=== PATIENT | female | born 1960 | race Caucasian/White ===

== ENCOUNTER 2021-02-23 19:59 | Emergency (ER) | payer OTHER, SELFPAY ==
[2021-02-23] VITALS (12 sets, daily range): BP systolic 139–198; BP diastolic 75–96; PULSE 63–84; RESP 13–16; TEMP 36.6; O2SAT 95–100
--- NOTE | ~2021-02-23 | XR_ITS ---
EXAMINATION: XR chest 1V portable 02/23/2021 20:23 INDICATION: Dyspnea. Asthma. PROCEDURE: AP portable chest COMPARISON: 03/16/2016 FINDINGS: The lungs are clear. The cardiomediastinal silhouette is within normal limits. There are no pleural effusions. There is no pneumothorax suspected. There is dextroscoliosis of the thoracic spine. IMPRESSION: 1: NO ACUTE CARDIOPULMONARY DISEASE. Reviewed, dictated and finalized at location A.
--- NOTE | ~2021-02-23 | CT_ITS ---
EXAMINATION: CTA brain carotid DATE: 02/23/2021 21:24 CDT INDICATION: Right-sided headache. Blurred vision. TECHNIQUE: Computed tomographic angiography (CTA) of the head was performed without and with 100 mL O mnipaque-350 intravenous contrast. CTA of the neck was performed with intravenous contrast. The dose- length product was 1675.01 mGy-cm. Maximum intensity projection and volume rendered 3D-reconstruction s were created by the technologist on a separate workstation. Automated exposure control and iterativ e reconstruction technique were employed. COMPARISON: None. FINDINGS: HEAD CT/CTA: Normal brain parenchymal volume for age. No ventriculomegaly or midline shift. Normal gr ay-white differentiation. No acute hemorrhage, infarction, mass or mass effect. Paranasal sinuses and mastoids are pneumatized. No there is normal course and caliber of the vertebral and internal caroti d arteries. The anterior, middle and posterior cerebral arteries are symmetric without significant st enosis, occlusion or aneurysm. NECK CTA: No significant stenosis identified at the origin of the great vessels. The aortic arch is u nremarkable. There is normal contrast opacification of the common, internal and external carotid doretha rickey without significant stenosis, occlusion or ulceration. The lung apices are unremarkable. There i s scoliosis of the thoracic spine, partially visualized. Moderate cervical spondylosis. There is 0% stenosis of the proximal right internal carotid artery relative to normal distal artery l umen diameter (NASCET criteria). There is 0% stenosis of the proximal left internal carotid artery re lative to normal distal artery lumen diameter. IMPRESSION: 1. No acute intracranial abnormality. 2: No significant vascular abnormality of the arteries of the head or neck. Reviewed, dictated and finalized at location A.
--- NOTE | 2021-02-23 20:12 | ECG_ITS ---
Measurements Intervals [place] Rate: 70 P: 63 CT: 165 QRS: 57 QRSD: 93 T: 68 QT: 394 QTc: 427 Interpretive Statements SINUS RHYTHM INCOMPLETE RIGHT BUNDLE BRANCH BLOCK BASELINE ARTIFACT- I, II, AVR, AVL, V2-V3 BORDERLINE ECG Electronically Signed On 02-24-2021 7:08:47 CDT by Melchor Denis D.O.
--- NOTE | 2021-02-23 20:23 | ED.NEUROSD ---
HPI - Neuro Symptoms/Deficit General Chief Complaint: Neuro Symptoms/Deficit Stated Complaint: blurred vision, pressure, numbness to right face Time Seen by Provider: 02/23/21 20:03 Source: patient Mode of arrival: ambulatory Limitations: no limitations History of Present Illness HPI Narrative: This is a 60 year old healthy female who presents for evaluation of right eye blurred vision. She reports developed sudden onset right eye blurred vision with associated right facial pain and right side headache around 430 pm today. Afterwards she went home to sleep it off. Her pain and blurred vision have continued. She describes her pain has right facial pressure. She has not taken any medication for pain. she denies visual field defects to her eye. She reports nausea but denies vomting, fever, focal weakness, numbness or tingling. she denies history of migraine headaches or CVA. Related Data Allergies Allergy/AdvReac Type Severity Reaction Status Date / Time No Known Allergies Allergy Unverified 03/16/16 13:43 Review of Systems Review of Systems: All systems reviewed & are unremarkable except as noted in HPI and below Constitutional: Constitutional: Denies chills and Denies fever(s) Eyes: Eyes: Reports change in vision, Denies diplopia, Denies loss of vision and Denies requires corrective lenses ENT: Reports nasal congestion Cardiovascular: Cardiovascular: Denies chest pain Respiratory: Respiratory: Denies cough and Denies dyspnea Gastrointestinal: Gastrointestinal: Denies abdominal pain, Reports nausea and Denies vomiting Neurologic: Denies vertigo, Denies dizziness, Reports headache(s), Denies focal weakness and Denies numbness PMFSH Past Medical History Medical History (Updated 02/24/21 @ 08:50 by Debra Canseco MD) Patient denies medical problems Surgical History Surgical History (Updated 02/24/21 @ 08:50 by Debra Canseco MD) Hx of tonsillectomy Social History Social History (Updated 02/24/21 @ 08:50 by Debra Canseco MD) Smoking status: Never smoker Substance use: never Exam Const: General: no acute distress and alert Orientation/consciousness: patient oriented x3 HENMT: Head: normocephalic and atraumatic Ears: TM's normal bilaterally and EAC's normal Face and sinus: face symmetric and sinus tenderness maxillary (right) Mouth: Yes Normal oral and palatal mucosa present, Yes lip normal, Yes oropharynx normal and Yes moist mucous membranes Throat: posterior oropharynx normal, tonsils normal and uvula midline Eyes: Visual Beard: normal visual beard by confrontation Alignment and Position: alignment normal Periorbital: periorbital findings normal Eyelids: eyelids normal Conjunctivae: conjunctivae normal Sclera: sclerae normal Pupils: Equal, round and reactive pupils present EOM: EOMs intact bilaterally Direct Ophthalmoscopy: no photophobia Other: IOP right eye 9, 9 Neck: Neck: normal visual inspection and no lymphadenopathy Chest: Chest palpation & inspection: normal inspection of the chest Resp: Effort & Inspection: normal respiratory effort and no retractions Auscultation: clear to auscultation bilaterally Cardio: Rate: regular rate Rhythm: regular rhythm Heart sounds: no murmurs GI: GI Palp: Yes Soft to palpation, No Tenderness to palpation present (GI) and No Guarding due to palpation present (GI) Auscultation: normal bowel sounds Skin: General skin exam: normal color Rashes: no rashes Neuro: General: moves all extremities, no focal motor deficits and CN's II-XI intact bilaterally Cranial nerves: Yes CN's II-XII intact bilaterally, Yes Equal, round and reactive pupils present and Yes Nystagmus not present Cognition (Neuro): normal cognition Speech: normal speech Gait exam (Neuro): Normal gait present Motor exam (neuro): 5/5 motor strength present throughout and Pronator motor function not present Sensory Exam: normal sensation Coordination: monica
[2021-02-23 20:25] LABS: Basophils Percent Auto 0.4 % (0.2-1.2); Eosinophils Absolute Auto 0.1 K/mm3 (0-0.3); Eosinophils Percent Auto 1.3 % (0-4.4); Hematocrit 44.4 % (37.0-47.0); Hemoglobin 14.8 g/dL (12.0-15.0); Immature Granulocyte Absolute 0.01 K/mm3 (0.00-0.031); Immature Granulocyte Percent A 0.1 % (0-0.5); Lymphocytes Absolute Auto 2.82 K/mm3 (0.9-3.2); Lymphocytes Percent Auto 40.7 % (18.3-44.2); Mean Corpuscular HGB Conc 33.3 g/dl (32-36); Mean Corpuscular Hemoglobin 29.5 pg (26-34); Mean Corpuscular Volume 88.6 fl (80-100); Mean Platelet Volume 10.4 fl (7.4-10.4); Monocytes Absolute Auto 0.6 K/mm3 (0.1-0.6); Monocytes Percent Auto 8.1 % (2.6-8.5); Neutrophils Absolute Auto 3.4 K/mm3 (1.3-6.7); Neutrophils Percent Auto 49.4 % (45.5-73.1); Platelet Count Result 234 k/mm3 (150-375); Red Blood Count 5.01 M/mm3 (4.2-5.4); Red Cell Distribution Width 12.2 % (11.5-14.5); White Blood Count 6.9 K/mm3 (4.5-10.0)
[2021-02-23 20:36] LABS: Alanine Aminotransferase 18 U/L (4-35); Albumin Level 4.9 g/dL (3.5-5.1); Alkaline Phosphatase 73 U/L (38-126); Anion Gap 7 mmol/L (8-16); Aspartate Amino Transferase 31 U/L (14-36); Bilirubin,Total 0.3 mg/dL (0.2-1.3); Blood Urea Nitrogen 14 mg/dL (7-17); Calcium 9.9 mg/dL (8.4-10.2); Carbon Dioxide 31 mmol/L (22-30); Chloride 104 mmol/L (98-107); Estimated Glomerular Filt Rate > 60; Glucose 139 mg/dL (65-105); Potassium 3.3 mmol/L (3.4-5.0); Sodium 142 mmol/L (137-145)
[2021-02-23 20:37] LABS: INR 0.9; Prothrombin Time 12.6 Seconds (11.1-14.7)
[2021-02-23] MEDS: METOCLOPRAMIDE HCL INJ 10 MG/2 ML VIAL IV PUSH (20:41)
[2021-02-23] MEDS: diphenhydrAMINE HCl INJ 50 MG/ML VIAL 25 MG IV PUSH (20:41)
[2021-02-23 20:45] LABS: Add Urine Microscopic? YES; Appearance Urine Cloudy (Clear); Bacteria Urine Trace /hpf; Bilirubin Urine Negative (Negative); Blood Urine Negative (Negative); Color Urine Yellow (Yellow); Glucose Urine UA Negative (Negative); Ketones Urine Negative (Negative); Leukocyte Esterase Ur 3+ LEU/UL (Negative); Nitrate Urine Negative (Negative); Protein Urine Negative (Negative); Specific Grav Ur 1.005 (1.001-1.035); Squamous Epithelial Cell Urine Many /hpf (Few); Urobilinogen Urine Negative mg/dL (<2.0); WBC Urine 31-50 /hpf
[2021-02-23 20:47] LABS: Troponin I < 0.012 ng/mL (0.000-0.034)
[2021-02-23] MEDS: SODIUM CHLORIDE 0.9% IV 1,000 ML 999 ML IV CONT (21:32)
== END 2021-02-23 22:45 | disposition home or self-care (01) ==
PROVIDERS: Emergency Provider General Practice; PCP Family Medicine
DX: H53.8 Other visual disturbances (principal); R51.9 Headache, unspecified
CPT/HCPCS: 36415; 70496; 70498; 71045; 80053; 81001; 84484; 85025; 85610; 85730; 87086; 87088; 93005; 96361; 96374; 96375; 99284; J1200; J2765; J7030; Q9967

== ENCOUNTER 2021-04-23 18:32 | Emergency (ER) | payer OTHER, SELFPAY ==
[2021-04-23 18:48] VITALS: BP 129/97; PULSE 71; RESP 16; TEMP 37.1; O2SAT 99
--- NOTE | 2021-04-23 19:02 | ED.SKABFB ---
HPI - Skin/Abscess/Foreign Bdy General Chief complaint: Skin/Abscess/Foreign Body Stated complaint: Insect bite Time Seen by Provider: 04/23/21 19:02 Source: patient Mode of arrival: ambulatory Limitations: no limitations History of Present Illness HPI narrative: Myrna Ramos is a 60 yo female with HTN, atherosclerosis, who [facility] with complaints of bite of some sort on her left upper arm that occurred 2 days ago that has gradually begun to itch more and is now hard around the core with erythema spreading out around, the erythema is 5 x 3 Related Data Home Medications Medication Instructions Recorded Confirmed ergocalciferol (vitamin D2) 04/23/21 hydrochlorothiazide 04/23/21 Allergies Allergy/AdvReac Type Severity Reaction Status Date / Time No Known Allergies Allergy Unverified 04/23/21 18:49 Review of Systems Review of Systems: Narrative: CONSTITUTIONAL: Denies fever, chills, sweats. EYES: Denies visual changes, redness, discharge. ENT: Denies rhinorrhea, congestion, sore throat, otalgia. CARDIOVASCULAR: Denies chest pain, palpitations, edema. RESPIRATORY: Denies dyspnea, wheezing, cough GASTROINTESTINAL: Denies abdominal pain, nausea, vomiting, diarrhea. GENITOURINARY: Denies dysuria, hematuria, abnormal discharge SKIN: Bug bite to left upper arm with small core and 5 x 3 erythema that occurred 2 days ago NEUROLOGIC: Denies numbness, or focal weakness. PSYCHIATRIC: Denies anxiety or depression. PMFSH Past Medical History Medical History Hypertension Patient denies medical problems Surgical History Surgical History Hx of tonsillectomy Family History Family History Other Hypertension Social History Social History (Updated 04/23/21 @ 19:19 by Bernadette Ren CNP) Smoking status: Never smoker Alcohol intake: current Alcohol use details: Occasional use Substance use: never Comments At time of signature, I agree with nursing past medical, surgical, social and family history. There is no relevant family history pertinent to the presenting complaint. Exam Narrative: Exam Narrative: GENERAL: This is a well-nourished, well-developed patient, in mild distress. HEAD: normocephalic, atraumatic. EYES: Sclera clear/white. Vision is grossly intact. EARS: External ears normal,. Hearing grossly intact. NOSE: External nose normal without nasal discharge, nares without redness, no rhinorrhea. THROAT: Mucous membranes moist, NECK: Neck supple, CARDIOVASCULAR: Regular rate and rhythm without murmurs, gallops, or rubs. RESPIRATORY: Clear to auscultation. Breath sounds equal bilaterally. No wheezes, rales, or rhonchi. GASTROINTESTINAL: Abdomen soft, non-tender, SKIN: warm, intact with small area of induration on left upper arm medial side with 5 x 3 erythema around it area is not fluctuant NEURO: awake, alert, and oriented to person, place and time. There were no obvious focal neurologic abnormalities. Steady gait EXTREMITIES: Normal range of motion. BACK: Nontender without deformity Course Course Emergency Course: [facility] complaints of left upper arm bite that has developed erythema and small area of induration Started on Keflex, encouraged to continue use of ice and hydrocortisone cream take Benadryl at night on in the morning Vital Signs Vital signs: Vital Signs Temperature 98.7 F 04/23/21 18:48 Pulse Rate 71 04/23/21 18:48 Respiratory Rate 16 04/23/21 18:48 Blood Pressure 129/97 H 04/23/21 18:48 Pulse Oximetry 99 04/23/21 18:48 Temperature 98.7 F 04/23/21 18:48 Pulse Rate 71 04/23/21 18:48 Respiratory Rate 16 04/23/21 18:48 Blood Pressure 129/97 H 04/23/21 18:48 Pulse Oximetry 99 04/23/21 18:48 MDM - Skin/Abscess/Foreign Bdy Differenti
== END 2021-04-23 19:18 | disposition home or self-care (01) ==
PROVIDERS: Emergency Provider Nurse Practitioner
DX: L03.114 Cellulitis of left upper limb (principal); S40.862A Insect bite (nonvenomous) of left upper arm, initial encounter; W57.XXXA Bitten or stung by nonvenomous insect and other nonvenomous arthropods, initial encounter; I10 Essential (primary) hypertension; I70.90 Unspecified atherosclerosis
CPT/HCPCS: 99213; G0463

== ENCOUNTER → 2021-06-14 09:15 | Outpatient (CLI) | payer OTHER, SELFPAY ==
--- NOTE | ~2021-06-14 | MMUS_ITS ---
EXAMINATION: MM diag kim implant BI w kris, US breast BI limited HISTORY: History of fibrocystic breast disease. TECHNIQUE: Additional 3-D tomosynthesis images of the breasts were performed and synthetic 2-D images were generated. CAD analysis was submitted and interpreted. High resolution limited bilateral breast ultrasound was performed. COMPARISON: None BREAST PARENCHYMAL COMPOSITION: Breast composed of scattered areas of fibroglandular density. FINDINGS: MAMMOGRAPHIC FINDINGS: There are no suspicious masses, calcifications or architectural distortion in the right breast to sug gest malignancy. There is a circumscribed radiolucent 4 mm nodule in the lower inner quadrant of the left breast anteriorly. ULTRASOUND: Limited right breast ultrasound: At 5:00, 3 cm from the nipple, there is a small 3 mm intramammary ly mph node adjacent to the breast implant. No suspicious masses in the right breast to suggest malignan cy. Left breast ultrasound: At 8:00, 4 cm from the nipple, there are 2 adjacent 3 mm cysts with internal septations. No suspicious masses to suggest malignancy. IMPRESSION: 1. No evidence for malignancy in either breast. Probable benign breast findings. 2. Recommend comparison to previous outside mammograms if available. BI-RADS Category 0: Incomplete: Needs additional imaging evaluation. Reviewed, dictated and finalized at location A. IMPRESSION: 1. No evidence for malignancy in either breast. Probable benign breast findings . 2. Recommend comparison to previous outside mammograms if available. BI-RADS Category 0: Incomplete: Needs additional imaging evaluation.
== END ==
DX: Z12.31 Encounter for screening mammogram for malignant neoplasm of breast (principal); Z87.898 Personal history of other specified conditions; Z80.3 Family history of malignant neoplasm of breast; R92.8 Other abnormal and inconclusive findings on diagnostic imaging of breast
CPT/HCPCS: 76642; 77062; 77066; G0279